=== PATIENT | female | born 2000 | race Caucasian/White ===

== ENCOUNTER 2019-03-10 17:53 | Emergency (ER) | payer OTHER ==
[~2019-03-10] VITALS: Ht 162.6 cm; Wt 65.8 kg
[2019-03-10 18:17] VITALS: BP 136/64
[2019-03-10] MEDS ORDERED: MOBIC7.5 MG PO (18:56)
== END 2019-03-10 19:30 | disposition home or self-care (01) ==
LOC: ER 17:53
DX: S00.03XA Contusion of scalp, initial encounter (principal); V89.2XXA Person injured in unspecified motor-vehicle accident, traffic, initial encounter; Y92.89 Other specified places as the place of occurrence of the external cause; Y93.89 Activity, other specified; Y99.8 Other external cause status